=== PATIENT | male | born 1950 | race Caucasian/White ===

== ENCOUNTER 2017-04-06 16:15 | Emergency (ER) | payer OTHER ==
[~2017-04-06] VITALS: Ht 170.2 cm; Wt 99.0 kg
[2017-04-06 16:31] VITALS: TEMP 37; Ht 170.2 cm; Wt 99.0 kg
--- NOTE | 2017-04-06 17:02 | DIAGNOSTIC IMAGING REPORT ---
CHEST ONE VIEW PORTABLE CLINICAL HISTORY: 67 years-old Male presenting with ABDOMINAL PAIN/GI, weakness. TECHNIQUE: Portable upright AP view of the chest was obtained. COMPARISON: None. FINDINGS: Prominence of the aortic arch with mild tortuosity of the descending thoracic aorta. Cardiac silhouette top normal in size. Few scattered calcified granulomas suggested. Lungs and pleural spaces otherwise clear. Post traumatic deformity of the distal right clavicle. Upper abdomen normal. IMPRESSION: 1. No acute cardiopulmonary disease. 2. 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 Electronically signed by: Mateus Grant M.D. 04/06/2017 5:01 PM Dictated Date/Time: 04/06/2017 4:59 PM
[2017-04-06 17:06] LABS: ISTAT CREATININE 1.5 mg/dl (0.6-1.3); ISTAT HEMOGLOBIN 10.2 g/dl (14.0-18.0); ISTAT IONIZED CALCIUM 1.14 mmol/l (1.12-1.32)
[2017-04-06 17:15] LABS: BASO % 0.1 %; BASO ABS # 0.02 K/uL (0-0.2); COMPLETE YES; EOS % 0.2 %; IG% 0.3 %; LYMPH % 7.7 %; LYMPH ABS # 1.31 K/uL (1.2-3.4); MEAN CELL VOLUME 89.2 fL (80-100); MEAN CORPUSCULAR HEMOGLOBIN 30.5 pg (25-34); MEAN CORPUSCULAR HGB CONC 34.1 g/dl (32-36); MEAN PLATELET VOLUME 10.7 fL (7.4-10.4); MONO % 9.2 %; NEUT % 82.5 %; PLATELET COUNT 311 K/uL (130-400); RED BLOOD COUNT 3.25 M/uL (4.7-6.1); WHITE BLOOD COUNT 17.02 K/uL (4.8-10.8)
[2017-04-06 17:24] LABS: PARTIAL THROMBOPLASTIN RATIO 1.2; PROTHROMBIN TIME (PATIENT) 10.8 SECONDS (9.0-12.0)
[2017-04-06] MEDS ORDERED: OPTIRAY 320 IV PRN (17:30)
--- NOTE | 2017-04-06 19:00 | DIAGNOSTIC IMAGING REPORT ---
ANGIO ABD/PELVIS WITH CONTRAST CLINICAL HISTORY: 67 years-old Male presenting with ABDOMINAL PAIN/GI. TECHNIQUE: Multidetector CT angiography of the abdomen and pelvis was performed after the administration of intravenous contrast. 3-D volumetric and/or maximum intensity projection (MIP) images were subsequently reconstructed for review. IV contrast: 116 mL of Optiray 320. A dose lowering technique was used consistent with the principles of ALARA (as low as reasonably achievable). Stenosis measurements were based on NASCET-like criteria. COMPARISON: None. CT DOSE (mGy.cm): The estimated cumulative dose is 610.23 mGy.cm. FINDINGS: Local Delivery Driver topogram: Unremarkable. The descending thoracic aorta is dilated measuring up to 5.3 cm in transverse dimension. Prominent mural thrombus noted to the aortic hiatus. The aorta remains increased in caliber although to a lesser extent to the level of the infrarenal abdominal aortic aneurysm, which measures up to 8.7 cm in maximal transverse dimension. There is significant heterogeneity of opacification within the aneurysm sac. There is suggestion of displacement of significant mural thrombus. Nonopacification of the right common iliac artery suggests thrombosis. Partial opacification of the left common iliac artery. Both common iliac arteries are involved with aneurysmal dilatation. Abrupt caliber change at the iliac bifurcations. The left external and internal iliac arteries are patent. The right internal iliac artery is nonopacified. The left external iliac artery appears to fill by collateral supply via the right inferior epigastric. Extensive acute hematoma surrounding the right inferior aspect of the aneurysm sac at the level of the takeoff of the right common iliac artery (series 2 image 58). Extensive retroperitoneal hematoma noted along the right anterior and posterior pararenal spaces. Celiac and superior mesenteric arteries patent as well as the bilateral single main renal arteries. The IVC is compressed and not visualized. The pelvic veins are nonopacified. Minimal dependent changes and emphysema at the lung bases. Mildly enlarged heart. No pericardial pleural effusion. Allowing for the arterial phase of contrast, the liver, pancreas, adrenal glands, and kidneys are normal appearing. Cholelithiasis noted. Splenic calcifications could suggest prior granulomatous infection. Mild circumferential bladder wall thickening with mild prostatomegaly, could suggest chronic outlet obstruction. Large bilateral inguinal hernias containing sigmoid colon on the right and small bowel on the left. No bowel obstruction. Moderate stool burden in the right and transverse colon. Displacement of the duodenum anteriorly secondary to the large amount of retroperitoneal hematoma. Trace free fluid in the right paracolic gutter. Presacral stranding likely relates to extraperitoneal hematoma extension from the retroperitoneum. No gross lymphadenopathy. Degenerative changes of the spine. IMPRESSION: Findings consistent with acute ruptured infrarenal abdominal aortic aneurysm. The aneurysm extends into the bilateral common iliac arteries to the level of the iliac bifurcations. The site of rupture is suspected along the right lateral aspect at the takeoff of the right common iliac artery. Large amount of right retroperitoneal hematoma with extension into the pelvis. Findings also concerning for occlusion of the right common iliac artery and the right internal iliac artery. The right external iliac artery appears to fill via retrograde flow. Nonopacification of the IVC and pelvic veins. This may be a function of the early phase of contrast. These critical findings were discussed with Dr. Skelton by Dr. Grant at approximately 6:50 PM on 04/06/2017. Urgent surgical consultation ongoing. Electronically signed by: Mateus Grant M.D. 04/06/2017 6:59 PM Dictated Date/Time: 04/06/2017 6:45 PM
[2017-04-06] MEDS ORDERED: LABETALOL HCL IV 5 MG/ML 20ML IV STA (19:52)
[2017-04-06 20:09] VITALS: O2SAT 97
[2017-04-06] MEDS ORDERED: MoRPHine SULFATE 4 MG/ML 1 ML CARP\\VIAL IV STA (20:35)
--- NOTE | 2017-04-06 20:42 | EMERGENCY ROOM VISIT NOTE ---
History Report prepared by Jase: Carlos Partida Under the Supervision of: Dr. Renan Skelton D.O. First contact with patient: 16:21 Chief Complaint: BACK PAIN Stated Complaint: AB PAIN, WEAKNESS, URINARY ISSUES History of Present Illness The patient is a 67 year old male who presents to the Emergency Room with complaints of persistent abdominal and back pain that has been persistent for the past 9 years. The patient states that the doctor at the [facility] noticed that he was lying in bed more often than usual, and they made him come here. The patient states that he has had a hernia for the past nine years, and this pain is very similar. Per the nurses, the patient has been having difficulty urinating, and he has been having increased shortness of breath. Source of History: patient, nursing staff Onset: 9 years ago Position: abdomen, back Timing: other (persistent) Associated Symptoms: + SOB, + urinary symptoms Review of Systems See HPI for pertinent positives & negatives. A total of 10 systems reviewed and were otherwise negative. Past Medical & Surgical Medical Problems: (1) Hernia Social History Housing Status: other (snf) Occupation Status: other (prisoner) Current/Historical Medications No Active Prescriptions or Reported Meds Allergies Coded Allergies: No Known Allergies (Unverified , 04/06/17) Physical Exam Vital Signs Date Time Temp Pulse Resp B/P (MAP) Pulse Ox O2 Delivery O2 Flow Rate FiO2 04/06/17 21:03 57 18 111/62 93 Nasal Cannula 2.0 04/06/17 20:34 59 18 138/91 99 Nasal Cannula 04/06/17 20:09 97 Nasal Cannula 2.0 04/06/17 20:05 61 18 133/88 93 Room Air 04/06/17 20:00 62 154/110 04/06/17 19:47 82 20 168/107 95 Room Air 04/06/17 19:26 81 20 166/109 96 Room Air 04/06/17 18:15 81 20 154/111 94 Room Air 04/06/17 17:33 74 18 157/95 96 Room Air 04/06/17 16:55 78 04/06/17 16:31 37.0 79 18 156/100 96 Room Air Physical Exam CONSTITUTIONAL/VITAL SIGNS: Reviewed / noted above. GENERAL: Non-toxic in appearance. INTEGUMENTARY: Warm, dry, and [place]. HEAD: Normocephalic. EYES: without scleral icterus or trauma. ENT/OROPHARYNX: clear and moist. LYMPHADENOPATHY/NECK: Is supple without lymphadenopathy or meningismus. RESPIRATORY: Lungs clear and equal. CARDIOVASCULAR: Regular rate and rhythm. GI/ABDOMEN: There is a pulsatile abdominal mass. Soft and nontender. No organomegaly. No rebound or guarding. Normal bowel sounds. EXTREMITIES: Warm and well perfused. BACK: No CVA tenderness. NEUROLOGICAL: Intact without focal deficits. PSYCHIATRIC: normal affect. MUSCULOSKELETAL: Normally developed with good muscle tone. Medical Decision & Procedures ER Provider Diagnostic Interpretation: Radiology results as stated below per my review and radiologist interpretation: CHEST ONE VIEW PORTABLE CLINICAL HISTORY: 67 years-old Male presenting with ABDOMINAL PAIN/GI, weakness. TECHNIQUE: Portable upright AP view of the chest was obtained. COMPARISON: None. FINDINGS: Prominence of the aortic arch with mild tortuosity of the descending thoracic aorta. Cardiac silhouette top normal in size. Few scattered calcified granulomas suggested. Lungs and pleural spaces otherwise clear. Post traumatic deformity of the distal right clavicle. Upper abdomen normal. IMPRESSION: 1. No acute cardiopulmonary disease. 2. 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 Electronically signed by: Mateus Grant M.D. 04/06/2017 5:01 PM Dictated Date/Time: 04/06/2017 4:59 PM ANGIO ABD/PELVIS WITH CONTRAST CLINICAL HISTORY: 67 years-old Male presenting with ABDOMINAL PAIN/GI. TECHNIQUE: Multidetector CT angiography of the abdomen and pelvis was performed after the administration of intravenous contrast. 3-D volumetric and/or maximum intensity projection (MIP) images were subsequently reconstructed for review. IV contrast: 116 mL of Optiray 320. A dose lowering technique was used consistent with the principles of ALARA (as low as reasonably achievable). Stenosis measurements were based on NASCET-like criteria. COMPARISON: None. CT DOSE (mGy.cm): The estimated cumulative dose is 610.23 mGy.cm. FINDINGS: Roller Inspector topogram: Unremarkable. The descending thoracic aorta is dilated measuring up to 5.3 cm in transverse dimension. Prominent mural thrombus noted to the aortic hiatus. The aorta remains increased in caliber although to a lesser extent to the level of the infrarenal abdominal aortic aneurysm, which measures up to 8.7 cm in maximal transverse dimension. There is significant heterogeneity of opacification within the aneurysm sac. There is suggestion of displacement of significant mural thrombus. Nonopacification of the right common iliac artery suggests thrombosis. Partial opacification of the left common iliac artery. Both common iliac arteries are involved with aneurysmal dilatation. Abrupt caliber change at the iliac bifurcations. The left external and internal iliac arteries are patent. The right internal iliac artery is nonopacified. The left external iliac artery appears to fill by collateral supply via the right inferior epigastric. Extensive acute hematoma surrounding the right inferior aspect of the aneurysm sac at the level of the takeoff of the right common iliac artery (series 2 image 58). Extensive retroperitoneal hematoma noted along the right anterior and posterior pararenal spaces. Celiac and superior mesenteric arteries patent as well as the bilateral single main renal arteries. The IVC is compressed and not visualized. The pelvic veins are nonopacified. Minimal dependent changes and emphysema at the lung bases. Mildly enlarged heart. No pericardial pleural effusion. Allowing for the arterial phase of contrast, the liver, pancreas, adrenal glands, and kidneys are normal appearing. Cholelithiasis noted. Splenic calcifications could suggest prior granulomatous infection. Mild circumferential bladder wall thickening with mild prostatomegaly, could suggest chronic outlet obstruction. Large bilateral inguinal hernias containing sigmoid colon on the right and small bowel on the left. No bowel obstruction. Moderate stool burden in the right and transverse colon. Displacement of the duodenum anteriorly secondary to the large amount of retroperitoneal hematoma. Trace free fluid in the right paracolic gutter. Presacral stranding likely relates to extraperitoneal hematoma extension from the retroperitoneum. No gross lymphadenopathy. Degenerative changes of the spine. IMPRESSION: Findings consistent with acute ruptured infrarenal abdominal aortic aneurysm. The aneurysm extends into the bilateral common iliac arteries to the level of the iliac bifurcations. The site of rupture is suspected along the right lateral aspect at the takeoff of the right common iliac artery. Large amount of right retroperitoneal hematoma with extension into the pelvis. Findings also concerning for occlusion of the right common iliac artery and the right internal iliac artery. The right external iliac artery appears to fill via retrograde flow. Nonopacification of the IVC and pelvic veins. This may be a function of the early phase of contrast. These critical findings were discussed with Dr. Skelton by Dr. Grant at approximately 6:50 PM on 04/06/2017. Urgent surgical consultation ongoing. Electronically signed by: Mateus Grant M.D. 04/06/2017 6:59 PM Dictated Date/Time: 04/06/2017 6:45 PM Laboratory Results 04/06/17 16:46 Red Blood Count 3.25, Mean Corpuscular Volume 89.2, Mean Corpuscular Hemoglobin 30.5, Mean Corpuscular Hemoglobin Concent 34.1, Mean Platelet Volume 10.7, Neutrophils (%) (Auto) 82.5, Lymphocytes (%) (Auto) 7.7, Monocytes (%) (Auto) 9.2, Eosinophils (%) (Auto) 0.2, Basophils (%) (Auto) 0.1, Neutrophils # (Auto) 14.04, Lymphocytes # (Auto) 1.31, Monocytes # (Auto) 1.57, Eosinophils # (Auto) 0.03, Basophils # (Auto) 0.02 Test 04/06/17 00:00 04/06/17 16:46 04/06/17 16:56 White Blood Count 17.02 K/uL (4.8-10.8) Red Blood Count 3.25 M/uL (4.7-6.1) Hemoglobin 9.9 g/dL (14.0-18.0) Hematocrit 29.0 % (42-52) Mean Corpuscular Volume 89.2 fL (80-100) Mean Corpuscular Hemoglobin 30.5 pg (25-34) Mean Corpuscular Hemoglobin Concent 34.1 g/dl (32-36) Platelet Count 311 K/uL (130-400) Mean Platelet Volume 10.7 fL (7.4-10.4) Neutrophils (%) (Auto) 82.5 % Lymphocytes (%) (Auto) 7.7 % Monocytes (%) (Auto) 9.2 % Eosinophils (%) (Auto) 0.2 % Basophils (%) (Auto) 0.1 % Neutrophils # (Auto) 14.04 K/uL (1.4-6.5) Lymphocytes # (Auto) 1.31 K/uL (1.2-3.4) Monocytes # (Auto) 1.57 K/uL (0.11-0.59) Eosinophils # (Auto) 0.03 K/uL (0-0.5) Basophils # (Auto) 0.02 K/uL (0-0.2) RDW Standard Deviation 45.8 fL (36.4-46.3) RDW Coefficient of Variation 14.0 % (11.5-14.5) Immature Granulocyte % (Auto) 0.3 % Immature Granulocyte # (Auto) 0.05 K/uL (0.00-0.02) Prothrombin Time 10.8 SECONDS (9.0-12.0) Prothromb Time International Ratio 1.0 (0.9-1.1) Activated Partial Thromboplast Time 30.3 SECONDS (21.0-31.0) Partial Thromboplastin Ratio 1.2 Total Bilirubin 0.9 mg/dl (0.2-1) Direct Bilirubin 0.4 mg/dl (0-0.2) Aspartate Amino Transf (AST/SGOT) 14 U/L (15-37) Alanine Aminotransferase (ALT/SGPT) 13 U/L (12-78) Alkaline Phosphatase 104 U/L (45-117) Total Protein 7.4 gm/dl (6.4-8.2) Albumin 2.7 gm/dl (3.4-5.0) Lipase 86 U/L (73-393) Bedside Hemoglobin 10.2 g/dl (14.0-18.0) Bedside Hematocrit 30 % (42-52) Bedside Sodium 131 mEq/L (135-144) Bedside Potassium 3.5 mEq/L (3.3-5.0) Bedside Chloride 94 mEq/L (101-112) Bedside Total CO2 23 mEq/l (24-31) Anion Gap 18.0 mmol/L (16-25) Bedside Blood Urea Nitrogen 31 mg/dl (7-18) Bedside Creatinine 1.5 mg/dl (0.6-1.3) Bedside Glucose (other) 113 mg/dl (70-99) Bedside Ionized Calcium (Jonny) 1.14 mmol/l (1.12-1.32) Laboratory results as stated above per my review. Medications Administered Medications (Trade) Dose Ordered Sig/Trixie Route Start Time Stop Time Status Last Admin Dose Admin Labetalol HCl (Normodyne IV) 20 mg NOW STAT IV 04/06/17 19:52 04/06/17 19:54 DC 04/06/17 19:59 20 MG Morphine Sulfate (MoRPHine SULFATE INJ) 4 mg NOW STAT IV 04/06/17 20:35 04/06/17 20:36 DC 04/06/17 20:40 4 MG ECG Indication: abdominal pain Rate (beats per minute): 75 Rhythm: normal sinus Findings: no ectopy, other (No acute injury) ED Course 1620: Previous medical records were reviewed. The patient was evaluated in room C3. A complete history and physical examination was performed. 1845: I reevaluated the patient, and I updated him on the treatment plan. He states that he has had this pain for 9 months, and it went into his back 3 months ago 1910: I discussed the patient's case with Dr. Sinha, [facility], and he states that they cannot accept the patient due to being short staffed 1939: I discussed the patient's case with Dr. Underwood, [facility] [place] [facility], and she is going to accept the patient when a bed is open for him. 1951: Labetalol HCl 20mg IV 2049: Morphine IV 4mg 2104: Labetalol 100mg PO Medical Decision Differential considered: pancreatitis, hepatitis, or acute cholecystitis, AAA, UTI, pyelonephritis, kidney stones, appendicitis, diverticulitis, shingles, bowel obstruction mesenteric ischemia, intussusception,hernia, testicular torsion, ovarian torsion, ruptured ovarian cyst,ectopic , . This is a 67-year-old male who presents to the ED with a chief complaint of low back pain. The patient reports that he has had abdominal pain for about 9 months. He reports abdominal pain in addition to low back pain for the past 3 months. He was evaluated at the [facility] today and a pulsatile mass was noted and he was sent here for evaluation. He denies any significant change in his symptoms today or over in the recent past. The patient is heme unable was stable. His physical exam reveals a pulsatile abdominal mass. The patient's white blood cell count was 17 and his hemoglobin is 9.9. Creatinine is 1.5. Lipase was negative. Liver function tests are normal. Chest x-ray did not show acute disease. Abdominal CT scan angiogram reveals a ruptured abdominal aortic aneurysm that is infrarenal. Further details are listed in the CT scan. The patient was told the results of the tests. I spoke with Cristóbal and Bright. Dr. Underwood from vascular surgery accepted the patient. The patient was transported by embolus. He is hemodynamic was stable. She recommended some labetalol for blood pressure control. This was given IV and PO. The patient's blood pressure did improve with this. The patient was also given IV morphine for pain. He has been accepted and which has provided by ambulance. He has no changes in his condition and remained hemodynamic stable during his stay. Medication Reconcilliation Current Medication List: was personally reviewed by me Blood Pressure Screening Patient's blood pressure: Elevated blood pressure Consults Time Called: 1847 Consulting Physician: Dr. Sinha, [facility] Returned Call: 1910 I discussed the patient's case with Dr. Sinha, [facility], and he states that they cannot accept the patient due to being short staffed Additional Consults: Time Called: 1919 Consulted Physician: [facility] Returned Call: 1939 Additional Comments: I discussed the patient's [facility], and she is going to accept the patient when a bed is open for him. Impression Primary Impression: Ruptured abdominal aortic aneurysm (AAA) Critical Care I have personally spent greater than 75 minutes of critical care time in the direct management of this patient. This includes bedside care, interpretation of diagnostic studies, and testing, discussion with consultants, patient, and family members, and other required patient management activities. This 75 minutes is in excess of all separately billable procedures. Scribe Attestation The scribe's documentation has been prepared under my direction and personally reviewed by me in its entirety. I confirm that the note above accurately reflects all work, treatment, procedures, and medical decision making performed by me. Departure Information Dispostion Transfer Acute Care Facility Prescriptions No Active Prescriptions or Reported Meds [facility] Inst[facility] My [facility]
[2017-04-06] MEDS ORDERED: LABETALOL HCL 100 MG TAB PO ONE (21:00)
[2017-04-06 23:15] VITALS: BP 108/69; PULSE 58; O2SAT 93
== END 2017-04-06 23:19 | disposition short-term general hospital (02) ==
LOC: C.EDC 16:17
DX: I71.3 Abdominal aortic aneurysm, ruptured (principal)